=== PATIENT | female | born 1995 | race African-American/Black ===

== ENCOUNTER 2017-01-18 09:41 | Emergency (ER) | payer SELFPAY ==
[~2017-01-18] VITALS: Ht 170.2 cm; Wt 127.2 kg
[2017-01-18] MEDS ORDERED: SODIUM CHLORIDE 0.9% 1,000 ML IV ONE (10:59)
[2017-01-18] MEDS ORDERED: SODIUM CHLORIDE FLUSH 10ML SYR IVF ONE (11:00)
[2017-01-18] MEDS ORDERED: ONDANSETRON 2MG/ML, 2ML IVPush ONE (11:00)
[2017-01-18] MEDS ORDERED: SODIUM CHLORIDE 0.9% 1,000ML IVBOLUS ONE (11:00)
[2017-01-18] MEDS ORDERED: ONDANSETRON 2MG/ML, 2ML ONE (11:00)
[2017-01-18] MEDS ORDERED: HYDROmorphone 1 MG/ML, 1ML IVPush PRN (11:00)
[2017-01-18] MEDS ORDERED: HYDROmorphone 1 MG/ML, 1ML ONE (11:00)
[2017-01-18 11:48] LABS: ASPARTATE AMINO TRANSFERASE 16 U/L (15-37); BLOOD UREA NITROGEN 9 mg/dL (7-18)
[2017-01-18 13:41] LABS: PATH.CAST-FLAG NOT PRESENT; SPERM-FLAG NOT PRESENT; SRC-FLAG NOT PRESENT; XTAL-FLAG NOT PRESENT; YLC-FLAG NOT PRESENT
[2017-01-18 14:40] VITALS: BP 123/75
== END 2017-01-18 14:54 | disposition home or self-care (01) ==
LOC: ED 13:06
DX: K52.9 Noninfective gastroenteritis and colitis, unspecified (principal)
CPT/HCPCS: 36415; 76700; 80053; 81001; 83690; 84703; 85025; 87086; 96361; 96374; 96375; 99285; J1170; J2405; J7030

== ENCOUNTER 2017-01-19 10:23 | Emergency (ER) | payer SELFPAY ==
[~2017-01-19] VITALS: Ht 170.2 cm; Wt 125.0 kg
[2017-01-19] MEDS ORDERED: SODIUM CHLORIDE 0.9% 1,000 ML IV ONE (10:32)
[2017-01-19] MEDS ORDERED: ONDANSETRON 2MG/ML, 2ML ONE (10:42)
[2017-01-19] MEDS ORDERED: HYDROmorphone 1 MG/ML, 1ML ONE (10:42)
[2017-01-19] MEDS ORDERED: ONDANSETRON 2MG/ML, 2ML IVPush ONE (11:00)
[2017-01-19] MEDS ORDERED: SODIUM CHLORIDE FLUSH 10ML SYR IVF ONE (11:00)
[2017-01-19] MEDS ORDERED: HYDROmorphone 1 MG/ML, 1ML IVPush PRN (11:00)
[2017-01-19 11:01] LABS: ASPARTATE AMINO TRANSFERASE 11 U/L (15-37); BLOOD UREA NITROGEN 6 mg/dL (7-18)
[2017-01-19] MEDS ORDERED: OMNIPAQUE 350 MG/ML, 100ML BOTTLE ONE (12:25)
[2017-01-19] MEDS ORDERED: KETOROLAC 30 MG/1 ML ONE ×2 (13:17→13:18)
[2017-01-19 13:23] VITALS: BP 125/53
[2017-01-19] MEDS ORDERED: KETOROLAC 30 MG/1 ML IVPush ONE (13:30)
== END 2017-01-19 13:25 | disposition home or self-care (01) ==
LOC: ED 12:13
DX: S29.011A Strain of muscle and tendon of front wall of thorax, initial encounter (principal); X58.XXXA Exposure to other specified factors, initial encounter; Y93.89 Activity, other specified; Y92.89 Other specified places as the place of occurrence of the external cause; Y99.8 Other external cause status
CPT/HCPCS: 36415; 74177; 80053; 83690; 85025; 96361; 96374; 96375; 99285; J1170; J1885; J2405; J7030; Q9967

== ENCOUNTER 2017-01-20 11:38 | Emergency (ER) | payer SELFPAY ==
[~2017-01-20] VITALS: Ht 170.2 cm; Wt 120.0 kg
[2017-01-20] MEDS ORDERED: ONDANSETRON 2MG/ML, 2ML IVPush ONE (12:30)
[2017-01-20] MEDS ORDERED: SODIUM CHLORIDE 0.9% 1,000ML IVBOLUS ONE (12:30)
[2017-01-20] MEDS ORDERED: LORazepam 2 MG/ML, 1ML IVPush ONE (12:30)
[2017-01-20] MEDS ORDERED: SODIUM CHLORIDE FLUSH 10ML SYR IVF ONE (12:30)
[2017-01-20 12:52] LABS: ASPARTATE AMINO TRANSFERASE 14 U/L (15-37); BLOOD UREA NITROGEN 7 mg/dL (7-18)
[2017-01-20] MEDS ORDERED: MORPHINE SULFATE 4 MG/ML, 1ML ONE ×2 (12:53→15:12)
[2017-01-20] MEDS ORDERED: ONDANSETRON 2MG/ML, 2ML ONE (12:54)
[2017-01-20] MEDS ORDERED: LORazepam 2 MG/ML, 1ML ONE (12:54)
[2017-01-20] MEDS ORDERED: OMNIPAQUE 350 MG/ML, 100ML BOTTLE ONE (13:20)
[2017-01-20] MEDS: MORPHINE SULFATE 4 MG/ML, 1ML IVPush PRN ×2 (13:23→15:18)
[2017-01-20] MEDS ORDERED: CEFTRIAXONE PMX 1GM/50ML 50 ML IV ONE (14:30)
[2017-01-20] MEDS ORDERED: CEFTRIAXONE PMX 1GM/50ML 50 ML ONE (15:12)
[2017-01-20 15:18] VITALS: BP 116/78
== END 2017-01-20 16:16 | disposition home or self-care (01) ==
LOC: ED 13:34
DX: I88.0 Nonspecific mesenteric lymphadenitis (principal); N30.00 Acute cystitis without hematuria; R10.11 Right upper quadrant pain
CPT/HCPCS: 36415; 71275; 80053; 81001; 83690; 84703; 85025; 87086; 93005; 96361; 96365; 96375; 96376; 99285; J0696; J2060; J2405; J7030; Q9967

== ENCOUNTER 2017-01-21 20:06 | Emergency (ER) | payer SELFPAY ==
[~2017-01-21] VITALS: Ht 172.7 cm; Wt 152.1 kg
[2017-01-21 21:26] LABS: PATH.CAST-FLAG NOT PRESENT; SPERM-FLAG NOT PRESENT; SRC-FLAG NOT PRESENT; XTAL-FLAG NOT PRESENT; YLC-FLAG NOT PRESENT
[2017-01-21] MEDS ORDERED: ZIPRASIDONE 20 MG INJ IM ONE ×2 (21:30→21:47)
[2017-01-21] MEDS ORDERED: SODIUM CHLORIDE 0.9% 1,000ML IVBOLUS ONE (21:30)
[2017-01-21] MEDS ORDERED: KETOROLAC 30 MG/1 ML IVPush ONE (21:30)
[2017-01-21 21:47] LABS: ASPARTATE AMINO TRANSFERASE 17 U/L (15-37); BLOOD UREA NITROGEN 7 mg/dL (7-18)
[2017-01-21] MEDS ORDERED: ONDANSETRON 2MG/ML, 2ML ONE ×2 (21:47→22:21)
[2017-01-21] MEDS ORDERED: MORPHINE SULFATE 4 MG/ML, 1ML ONE (21:47)
[2017-01-21] MEDS ORDERED: ONDANSETRON 2MG/ML, 2ML IVPush ONE (22:00)
[2017-01-21] MEDS ORDERED: KETOROLAC 30 MG/1 ML ONE (22:21)
[2017-01-22 00:33] VITALS: BP 138/86
== END 2017-01-22 00:35 | disposition home or self-care (01) ==
LOC: ED 01-22 00:20
DX: R10.11 Right upper quadrant pain (principal)
CPT/HCPCS: 36415; 80053; 81001; 83605; 83690; 85025; 87086; 96361; 96372; 96374; 96375; 99284; J1885; J2405; J3486; J7030

== ENCOUNTER 2017-01-28 12:01 | Emergency (ER) | payer SELFPAY ==
[~2017-01-28] VITALS: Ht 175.3 cm; Wt 149.8 kg
[2017-01-28] MEDS ORDERED: ONDANSETRON ODT 4 MG ONE (12:17)
[2017-01-28] MEDS ORDERED: SODIUM CHLORIDE FLUSH 10ML SYR IVF ONE (12:30)
[2017-01-28] MEDS ORDERED: ONDANSETRON ODT 4 MG PO ONE (12:30)
[2017-01-28] MEDS ORDERED: SODIUM CHLORIDE 0.9% 1,000ML IVBOLUS ONE ×2 (12:30→15:00)
[2017-01-28] MEDS ORDERED: SODIUM CHLORIDE 0.9% 1,000 ML IV ONE (14:43)
[2017-01-28] MEDS ORDERED: ONDANSETRON 2MG/ML, 2ML ONE (14:56)
[2017-01-28] MEDS ORDERED: FAMOTIDINE 20 MG/2 ML ONE (14:56)
[2017-01-28] MEDS ORDERED: MAALOX/HYOSCYAMINE/LIDOCAINE 45 ML BOTTLE ONE (14:56)
[2017-01-28] MEDS ORDERED: MORPHINE SULFATE 4 MG/ML, 1ML ONE (14:56)
[2017-01-28 15:00] LABS: ASPARTATE AMINO TRANSFERASE 11 U/L (15-37); BLOOD UREA NITROGEN 12 mg/dL (7-18)
[2017-01-28] MEDS ORDERED: MORPHINE SULFATE 4 MG/ML, 1ML IVPush PRN (15:00)
[2017-01-28] MEDS ORDERED: MAALOX/HYOSCYAMINE/LIDOCAINE 45 ML BOTTLE PO ONE (15:00)
[2017-01-28] MEDS ORDERED: FAMOTIDINE 20 MG/2 ML IVP ONE (15:00)
[2017-01-28] MEDS ORDERED: ONDANSETRON 2MG/ML, 2ML IVPush ONE (15:00)
[2017-01-28 17:02] VITALS: BP 126/88
== END 2017-01-28 17:03 | disposition home or self-care (01) ==
LOC: ED 16:20
DX: R10.84 Generalized abdominal pain (principal); Z87.440 Personal history of urinary (tract) infections
CPT/HCPCS: 36415; 74022; 80053; 81001; 83605; 83690; 84703; 85025; 93005; 96361; 96374; 96375; 99285; J2405; J7030; Q0162; S0028

== ENCOUNTER 2017-06-17 14:06 | Emergency (ER) | payer SELFPAY ==
[~2017-06-17] VITALS: Ht 177.8 cm; Wt 132.5 kg
[2017-06-17] MEDS ORDERED: OMEP20TA62 PO (14:17)
[2017-06-17] MEDS ORDERED: FAMOTIDINE 20 MG/2 ML ONE (14:23)
[2017-06-17] MEDS ORDERED: ONDANSETRON 2MG/ML, 2ML ONE (14:23)
[2017-06-17] MEDS ORDERED: HYDROmorphone 1 MG/ML, 1ML ONE (14:23)
[2017-06-17] MEDS ORDERED: FAMOTIDINE 20 MG/2 ML IVP ONE (14:30)
[2017-06-17] MEDS ORDERED: ONDANSETRON 2MG/ML, 2ML IVPush ONE (14:30)
[2017-06-17] MEDS ORDERED: SODIUM CHLORIDE 0.9% 1,000ML IVBOLUS ONE (14:30)
[2017-06-17] MEDS ORDERED: HYDROmorphone 1 MG/ML, 1ML IVPush PRN (14:30)
[2017-06-17] MEDS ORDERED: SODIUM CHLORIDE FLUSH 10ML SYR IVF ONE (14:30)
[2017-06-17 14:57] LABS: HEMATOCRIT 38.9 % (34.6-47.8); HEMOGLOBIN 12.9 g/dL (11.7-16.4); WHITE BLOOD COUNT 8.3 x10^3/uL (3.4-10)
[2017-06-17 15:05] LABS: ASPARTATE AMINO TRANSFERASE 10 U/L (15-37); BLOOD UREA NITROGEN 9 mg/dL (7-18)
[2017-06-17 16:44] VITALS: BP 109/55
== END 2017-06-17 16:56 | disposition home or self-care (01) ==
LOC: MERGE 14:06 → ED 16:04
DX: R10.11 Right upper quadrant pain (principal); R11.2 Nausea with vomiting, unspecified
CPT/HCPCS: 36415; 76700; 80053; 81001; 83690; 84703; 85025; 87086; 96374; 96375; 99285; J1170; J2405; J7030; S0028

== ENCOUNTER 2017-06-24 00:59 | Emergency (ER) | payer SELFPAY ==
[~2017-06-24] VITALS: Ht 175.3 cm; Wt 140.0 kg
[~2017-06-24 00:59] MED LIST: OMEP20TA62 PO
[2017-06-24] MEDS ORDERED: ONDANSETRON 2MG/ML, 2ML IVPush ONE (01:30)
[2017-06-24] MEDS ORDERED: SODIUM CHLORIDE 0.9% 1,000ML IVBOLUS ONE (01:30)
[2017-06-24] MEDS ORDERED: KETOROLAC 30 MG/1 ML IVPush ONE (01:30)
[2017-06-24] MEDS ORDERED: LORazepam 2 MG/ML, 1ML IVPush ONE (01:30)
[2017-06-24] MEDS ORDERED: MORPHINE SULFATE 4 MG/ML, 1ML IVPush PRN (01:30)
[2017-06-24] MEDS ORDERED: SODIUM CHLORIDE FLUSH 10ML SYR IVF ONE (01:30)
[2017-06-24] MEDS ORDERED: MORPHINE SULFATE 4 MG/ML, 1ML ONE (01:39)
[2017-06-24] MEDS ORDERED: ONDANSETRON 2MG/ML, 2ML ONE (01:39)
[2017-06-24 01:51] LABS: HEMATOCRIT 41.2 % (34.6-47.8); HEMOGLOBIN 13.8 g/dL (11.7-16.4); WHITE BLOOD COUNT 8.6 x10^3/uL (3.4-10)
[2017-06-24 02:01] LABS: BLOOD UREA NITROGEN 7 mg/dL (7-18)
[2017-06-24 02:07] LABS: ASPARTATE AMINO TRANSFERASE 12 U/L (15-37)
[2017-06-24 03:45] VITALS: BP 116/57
== END 2017-06-24 03:49 | disposition home or self-care (01) ==
LOC: ED 03:20
DX: R10.11 Right upper quadrant pain (principal); E66.01 Morbid (severe) obesity due to excess calories; Z68.41 Body mass index [BMI] 40.0-44.9, adult
CPT/HCPCS: 36415; 74020; 80053; 81001; 83690; 84703; 85025; 87086; 96361; 96374; 96375; 99285; J2405; J7030

== ENCOUNTER 2017-06-27 16:28 | Emergency (ER) | payer SELFPAY ==
[~2017-06-27] VITALS: Ht 177.8 cm; Wt 132.0 kg
[2017-06-27] MEDS ORDERED: SODIUM CHLORIDE 0.9% 1,000 ML IV ONE (16:39)
[2017-06-27] MEDS ORDERED: MAALOX/HYOSCYAMINE/LIDOCAINE 45 ML BTL ONE (16:59)
[2017-06-27] MEDS ORDERED: FAMOTIDINE 20 MG/2 ML ONE (16:59)
[2017-06-27] MEDS ORDERED: MORPHINE SULFATE 4 MG/ML, 1ML ONE (16:59)
[2017-06-27] MEDS ORDERED: ONDANSETRON 2MG/ML, 2ML ONE (16:59)
[2017-06-27] MEDS ORDERED: ONDANSETRON 2MG/ML, 2ML IVPush ONE (17:00)
[2017-06-27] MEDS ORDERED: MAALOX/HYOSCYAMINE/LIDOCAINE 45 ML BTL PO ONE (17:00)
[2017-06-27] MEDS ORDERED: SODIUM CHLORIDE 0.9% 1,000ML IVBOLUS ONE (17:00)
[2017-06-27] MEDS ORDERED: FAMOTIDINE 20 MG/2 ML IVP ONE (17:00)
[2017-06-27] MEDS ORDERED: MORPHINE SULFATE 4 MG/ML, 1ML IVPush PRN (17:00)
[2017-06-27 17:02] LABS: HEMATOCRIT 39.6 % (34.6-47.8); HEMOGLOBIN 13.3 g/dL (11.7-16.4); WHITE BLOOD COUNT 6.5 x10^3/uL (3.4-10)
[2017-06-27 17:13] LABS: ASPARTATE AMINO TRANSFERASE 12 U/L (15-37); BLOOD UREA NITROGEN 6 mg/dL (7-18)
[2017-06-27 17:55] VITALS: BP 139/79
== END 2017-06-27 18:38 | disposition home or self-care (01) ==
LOC: ED 17:13
DX: K29.00 Acute gastritis without bleeding (principal); G89.29 Other chronic pain
CPT/HCPCS: 36415; 80053; 81001; 83690; 85025; 87086; 96361; 96374; 96375; 99284; J2405; J7030; S0028

== ENCOUNTER 2017-07-01 17:10 | Emergency (ER) | payer OTHER ==
[~2017-07-01] VITALS: Ht 175.3 cm; Wt 126.7 kg
[2017-07-01] MEDS ORDERED: SODIUM CHLORIDE 0.9% 1,000ML IVBOLUS ONE (17:30)
[2017-07-01] MEDS ORDERED: SODIUM CHLORIDE FLUSH 10ML SYR IVF ONE (17:30)
[2017-07-01 17:44] LABS: HEMATOCRIT 41.2 % (34.6-47.8); HEMOGLOBIN 13.8 g/dL (11.7-16.4); WHITE BLOOD COUNT 7.1 x10^3/uL (3.4-10)
[2017-07-01 17:58] LABS: ASPARTATE AMINO TRANSFERASE 13 U/L (15-37); BLOOD UREA NITROGEN 5 mg/dL (7-18)
[2017-07-01] MEDS ORDERED: LORazepam 2 MG/ML, 1ML ONE (18:24)
[2017-07-01] MEDS ORDERED: KETOROLAC 30 MG/1 ML IVPush ONE (18:30)
[2017-07-01] MEDS ORDERED: LORazepam 2 MG/ML, 1ML IVPush ONE (18:30)
[2017-07-01] MEDS ORDERED: KETOROLAC 30 MG/1 ML ONE (19:12)
[2017-07-01] MEDS ORDERED: ZIPRASIDONE 20 MG INJ IM ONE ×2 (20:17→20:30)
[2017-07-01 21:37] VITALS: BP 140/70
== END 2017-07-01 22:34 | disposition home or self-care (01) ==
LOC: ED 18:26
DX: G89.29 Other chronic pain (principal); R10.32 Left lower quadrant pain
CPT/HCPCS: 36415; 76830; 80053; 81001; 83690; 84703; 85025; 87086; 96361; 96372; 96374; 96375; 99285; J1885; J2060; J3486; J7030

== ENCOUNTER 2017-07-06 14:11 | Emergency (ER) | payer OTHER ==
[~2017-07-06] VITALS: Ht 175.3 cm; Wt 125.5 kg
[2017-07-06] MEDS ORDERED: DIPHENHYDRAMINE 50 MG/ML, 1ML ONE (14:51)
[2017-07-06] MEDS ORDERED: morphine SULFATE 10 MG/ML, 1ML ONE (14:51)
[2017-07-06] MEDS ORDERED: METOCLOPRAMIDE 5 MG/ML, 2ML ONE (14:51)
[2017-07-06] MEDS ORDERED: SODIUM CHLORIDE 0.9% 1,000ML IVBOLUS ONE (15:00)
[2017-07-06] MEDS ORDERED: SODIUM CHLORIDE FLUSH 10ML SYR IVF ONE (15:00)
[2017-07-06] MEDS ORDERED: METOCLOPRAMIDE 5 MG/ML, 2ML IVPush ONE (15:00)
[2017-07-06] MEDS ORDERED: DIPHENHYDRAMINE 50 MG/ML, 1ML IVPush ONE (15:00)
[2017-07-06] MEDS ORDERED: MORPHINE SULFATE 4 MG/ML, 1ML IVPush PRN (15:00)
[2017-07-06 15:18] LABS: HEMATOCRIT 42.9 % (34.6-47.8); HEMOGLOBIN 14.2 g/dL (11.7-16.4); WHITE BLOOD COUNT 5.3 x10^3/uL (3.4-10)
[2017-07-06 15:27] LABS: BLOOD UREA NITROGEN 4 mg/dL (7-18)
[2017-07-06 15:32] LABS: ASPARTATE AMINO TRANSFERASE 18 U/L (15-37)
[2017-07-06 16:58] VITALS: BP 107/47
== END 2017-07-06 19:00 | disposition home or self-care (01) ==
LOC: ED 15:19
DX: R10.84 Generalized abdominal pain (principal); R11.10 Vomiting, unspecified; R19.7 Diarrhea, unspecified; I88.0 Nonspecific mesenteric lymphadenitis
CPT/HCPCS: 36415; 74176; 80053; 81001; 83690; 84703; 85025; 96361; 96374; 96375; 99285; J1200; J2765; J7030

== ENCOUNTER 2017-07-07 13:43 | Emergency (ER) | payer OTHER ==
[~2017-07-07] VITALS: Ht 175.3 cm; Wt 125.0 kg
[2017-07-07] MEDS ORDERED: DIPHENHYDRAMINE 50 MG/ML, 1ML IVPush ONE (14:00)
[2017-07-07] MEDS ORDERED: FAMOTIDINE 20 MG/2 ML IVP ONE (14:00)
[2017-07-07] MEDS ORDERED: MORPHINE SULFATE 4 MG/ML, 1ML IVPush PRN (14:00)
[2017-07-07] MEDS ORDERED: METOCLOPRAMIDE 5 MG/ML, 2ML IVPush ONE (14:00)
[2017-07-07] MEDS ORDERED: SODIUM CHLORIDE 0.9% 1,000ML IVBOLUS ONE (14:00)
[2017-07-07] MEDS ORDERED: SODIUM CHLORIDE FLUSH 10ML SYR IVF ONE (14:00)
[2017-07-07] MEDS ORDERED: morphine SULFATE 10 MG/ML, 1ML ONE (14:11)
[2017-07-07] MEDS ORDERED: FAMOTIDINE 20 MG/2 ML ONE (14:12)
[2017-07-07] MEDS ORDERED: METOCLOPRAMIDE 5 MG/ML, 2ML ONE (14:12)
[2017-07-07] MEDS ORDERED: DIPHENHYDRAMINE 50 MG/ML, 1ML ONE (14:12)
[2017-07-07] MEDS ORDERED: HALOPERIDOL 5 MG/ML IM PRN (15:00)
[2017-07-07 15:36] VITALS: BP 111/57
[2017-07-07] MEDS ORDERED: HALOPERIDOL 5 MG/ML ONE (15:44)
== END 2017-07-07 16:59 | disposition home or self-care (01) ==
LOC: ED 14:31
DX: R11.2 Nausea with vomiting, unspecified (principal); R10.84 Generalized abdominal pain
CPT/HCPCS: 96361; 96372; 96374; 96375; 99284; J1200; J1630; J2765; J7030; S0028

== ENCOUNTER 2017-07-10 13:30 | Emergency (ER) | payer SELFPAY ==
[~2017-07-10] VITALS: Ht 175.3 cm; Wt 128.2 kg
[2017-07-10] MEDS ORDERED: SODIUM CHLORIDE 0.9% 1,000 ML IV ONE (14:24)
[2017-07-10] MEDS ORDERED: ONDANSETRON 2MG/ML, 2ML IVPush ONE (14:30)
[2017-07-10] MEDS ORDERED: SODIUM CHLORIDE FLUSH 10ML SYR IVF ONE (14:30)
[2017-07-10] MEDS ORDERED: SODIUM CHLORIDE 0.9% 1,000ML IVBOLUS ONE (14:30)
[2017-07-10] MEDS ORDERED: HYDROmorphone 1 MG/ML, 1ML ONE ×2 (14:31→16:23)
[2017-07-10] MEDS ORDERED: ONDANSETRON 2MG/ML, 2ML ONE (14:32)
[2017-07-10 14:44] LABS: HEMATOCRIT 39.7 % (34.6-47.8)
[2017-07-10] MEDS: HYDROmorphone 1 MG/ML, 1ML IVPush PRN ×2 (14:44→16:25)
[2017-07-10 14:55] LABS: ASPARTATE AMINO TRANSFERASE 12 U/L (15-37); BLOOD UREA NITROGEN 5 mg/dL (7-18)
[2017-07-10 17:22] VITALS: BP 108/80
== END 2017-07-10 17:25 | disposition home or self-care (01) ==
LOC: ED 14:42
DX: M54.5 Low back pain (principal)
CPT/HCPCS: 36415; 76700; 80053; 81003; 83690; 84703; 85025; 96361; 96374; 96375; 96376; 99285; J1170; J2405; J7030

== ENCOUNTER 2019-08-10 08:59 | Emergency (ER) | payer MEDICAID ==
[~2019-08-10] VITALS: Ht 175.3 cm; Wt 92.0 kg
--- NOTE | 2019-08-10 09:15 | NUR ---
PT HERE WITH C/O NAUSEA, VOMITTING, R/L UQ ABDOMINAL PAIN THAT RADIATES TO BACK. PT STATES STARTED THIS AM AT 0500. PT STATES SHE HAS VOMITTED 5 TIMES SINCE SHE WOKE UP. PT SITTING ON EDGE OF BED, RESIDENT MD AT BEDSIDE FOR EXAM. PT DENIES MEDICAL HX BUT STATES SHE TOOK A NORCO LAST NIGHT BEFORE BED WHICH SHE HAS A PRESCRIPTION FOR FROM [facility] ON 08/09. PT AAO X 4, ROOM AIR, CALL LIGHT WITHIN REACH, PT TO CHANGE INTO GOWN AFTER MD ASSESSMENT.
[2019-08-10 09:54] LABS: BASOPHILS % (AUTO) 0 % (0-1); EOSINOPHILS # (AUTO) 0.14 x10^3/uL (0-0.4); EOSINOPHILS % (AUTO) 2 % (1-7); LYMPHOCYTES # (AUTO) 1.36 x10^3/uL (1-3.4); LYMPHOCYTES % (AUTO) 17 % (22-44); MD NO; MEAN CORPUSCULAR HEMOGLOBIN 27.2 pg (27.0-34.8); MEAN CORPUSCULAR HGB CONC 31.3 g/dL (32.4-35.8); MEAN CORPUSCULAR VOLUME 86.8 fL (80-100); MONOCYTES # (AUTO) 0.28 x10^3/uL (0.2-0.8); MONOCYTES % (AUTO) 4 % (2-9); NEUTROPHILS # (AUTO) 6.16 x10^3/uL (1.8-6.8); NEUTROPHILS % (AUTO) 78 % (42-75); PLATELET COUNT 275 x10^3/uL (130-400); RED CELL DISTRIBUTION WIDTH 16.6 % (9.6-15.2)
--- NOTE | 2019-08-10 09:56 | NUR ---
TECH AT BEDSIDE FOR EKG.
[2019-08-10 10:04] LABS: ALANINE AMINOTRANSFERASE 18 U/L (12-78); ALBUMIN 4.4 g/dL (3.4-5.0); ANION GAP 5 mmol/L (5-15); CALCIUM 9.2 mg/dL (8.5-10.1); CHLORIDE 108 mmol/L (98-107); CREATININE 0.94 mg/dL (0.55-1.02)
[2019-08-10 10:06] LABS: ALKALINE PHOSPHATASE 58 U/L (45-117); BILIRUBIN,TOTAL 0.4 mg/dL (0.2-1.0); TOTAL PROTEIN 7.8 g/dL (6.4-8.2)
--- NOTE | 2019-08-10 10:07 | NUR ---
PT AMBULATORY TO RESTROOM WITH STEADY GAIT FOR URINE SAMPLE.
[2019-08-10] MEDS ORDERED: HALOPERIDOL 5 MG/ML ONE (10:16)
[2019-08-10] MEDS ORDERED: METOCLOPRAMIDE 5 MG/ML, 2ML ONE (10:16)
--- NOTE | 2019-08-10 10:22 | NUR ---
PT MEDICATED PER NOV, UA SENT TO LAB.
[2019-08-10 10:27] VITALS: BP 125/62
[2019-08-10] MEDS ORDERED: METOCLOPRAMIDE 5 MG/ML, 2ML IM ONE (10:30)
[2019-08-10] MEDS ORDERED: HALOPERIDOL 5 MG/ML IM ONE (10:30)
--- NOTE | 2019-08-10 10:58 | NUR ---
PT TO RADIOLOGY.
[2019-08-10 11:15] LABS: HCG UR SG 1.029 (1.003-1.030)
[2019-08-10 11:16] LABS: CULTURE INDICATED? YES; MICROSCOPIC INDICATED
--- NOTE | 2019-08-10 11:29 | NUR ---
THIS RN AND RESIDENT ENTERED ROOM FOR REASSESSMENT OF PT, PT FOUND NOT TO BE IN ROOM. THIS RN CALLED RADIOLOGY, PT NOT IN RADIOLOGY. THIS RN WALKED AROUND ER AND CHECKED ALL PT BATHROOMS, PT STILL UNABLE TO BE LOCATED. RESIDENT TO UPDATE ATTENDING MD.
--- NOTE | 2019-08-10 11:39 | NUR ---
PT MD DINORA AND MEAT CLERK AWARE.
== END 2019-08-10 11:41 | disposition left against medical advice (07) ==
LOC: ED 10:35
DX: R10.84 Generalized abdominal pain (principal); F12.188 Cannabis abuse with other cannabis-induced disorder
CPT/HCPCS: 36415; 74022; 80053; 81001; 81025; 83690; 85025; 87086; 93005; 96372; 99284; J1630; J2765

== ENCOUNTER 2019-08-19 09:11 | Emergency (ER) | payer MEDICAID ==
[~2019-08-19] VITALS: Ht 175.3 cm; Wt 97.7 kg
[2019-08-19] MEDS ORDERED: SODIUM CHLORIDE 0.9% 1,000 ML IV ONE (09:25)
[2019-08-19] MEDS ORDERED: SODIUM CHLORIDE FLUSH 10ML SYR IVF ONE (09:30)
[2019-08-19] MEDS ORDERED: SODIUM CHLORIDE 0.9% 1,000ML IVBOLUS ONE (09:30)
[2019-08-19] MEDS ORDERED: PROMETHAZINE 25 MG/ML, 1ML IM ONE (09:30)
[2019-08-19] MEDS ORDERED: PROMETHAZINE 25 MG/ML, 1ML ONE (09:34)
[2019-08-19] MEDS ORDERED: KETOROLAC 30 MG/1 ML ONE (09:42)
--- NOTE | 2019-08-19 09:43 | NUR ---
BREAK RN: PT CRYING, STATES SHE NEEDS PAIN MEDICATION HER PAIN LEVEL IS 10/[address] VAZQUEZ, ORDERS RECEIVED FOR TORDOL.
[2019-08-19] MEDS ORDERED: KETOROLAC 30 MG/1 ML IVPush ONE (10:00)
[2019-08-19 10:01] LABS: ALANINE AMINOTRANSFERASE 20 U/L (12-78); ANION GAP 5 mmol/L (5-15); CALCIUM 8.8 mg/dL (8.5-10.1); CHLORIDE 107 mmol/L (98-107); MEAN CORPUSCULAR HEMOGLOBIN 27.5 pg (27.0-34.8); MEAN CORPUSCULAR HGB CONC 31.8 g/dL (32.4-35.8); MEAN CORPUSCULAR VOLUME 86.4 fL (80-100); MEAN PLATELET VOLUME 9.1 fL (7.4-10.4); PLATELET COUNT 240 x10^3/uL (130-400); RED CELL DISTRIBUTION WIDTH 16.8 % (9.6-15.2)
--- NOTE | 2019-08-19 10:03 | NUR ---
Pt medicated per MAR, pt in bed, NAD, family at bedside, pt informed that UA required, pt states she cannot urinate at this time. Awaiting labs & dispo. WCTM.
[2019-08-19 10:06] LABS: ALKALINE PHOSPHATASE 57 U/L (45-117); BILIRUBIN,TOTAL 0.3 mg/dL (0.2-1.0); TOTAL PROTEIN 7.6 g/dL (6.4-8.2)
--- NOTE | 2019-08-19 10:39 | NUR ---
Attempted to straight cath pt, unsuccessful d/t pt's anatomy. Pt amulatory to restroom to provide UA, notified that pt is requesting more pain & nausea medications.
[2019-08-19] MEDS ORDERED: ONDANSETRON 2MG/ML, 2ML ONE ×2 (10:46→14:01)
[2019-08-19] MEDS ORDERED: HYDROmorphone 2 MG/ML, 1ML ONE (10:46)
[2019-08-19 10:51] LABS: BASOPHILS # (AUTO) 0.01 x10^3/uL (0-0.1); BASOPHILS % (AUTO) 0 % (0-1); EOSINOPHILS # (AUTO) 0.15 x10^3/uL (0-0.4); EOSINOPHILS % (AUTO) 3 % (1-7); LYMPHOCYTES # (AUTO) 0.84 x10^3/uL (1-3.4); LYMPHOCYTES % (AUTO) 18 % (22-44); MD SCAN; MONOCYTES # (AUTO) 0.23 x10^3/uL (0.2-0.8); MONOCYTES % (AUTO) 5 % (2-9); NEUTROPHILS # (AUTO) 3.55 x10^3/uL (1.8-6.8); NEUTROPHILS % (AUTO) 74 % (42-75)
--- NOTE | 2019-08-19 10:56 | NUR ---
Pt unable to provide UA at this time, notified
[2019-08-19] MEDS ORDERED: HYDROmorphone 2 MG/ML, 1ML IVPush PRN (11:00)
[2019-08-19] MEDS ORDERED: ONDANSETRON 2MG/ML, 2ML IVPush ONE ×2 (11:00→14:00)
--- NOTE | 2019-08-19 12:00 | NUR ---
Pt given ice chips for PO challenge, pt reports she is still unable to urinate. MD Murillo state dispo is not contengent on UA at this time
--- NOTE | 2019-08-19 12:56 | NUR ---
Pt up for recheck
--- NOTE | 2019-08-19 13:18 | NUR ---
RECEIVED REPORT FROM XIN. PT LAYING ON GURNEY WITH EYES CLOSED, RESPONDS APPROP TO STAFF, NAD, NO NEEDS AT THIS TIME, CALL LIGHT WITHIN REACH.
[2019-08-19 14:07] VITALS: BP 117/48
--- NOTE | 2019-08-19 14:08 | NUR ---
PT. REMAINS MONITORED WITH STABLE VITALS. PT. WAS MEDICATED FOR NAUSEA ORDERED. WILL REASSESS FOR DISCHARGE IN 15 MINUTES. NS BOLUS IS INFUSING. SIDERAILS REMAIN UP X 2 WITH THE CALL LIGHT IN REACH. BREAK RN.
--- NOTE | 2019-08-19 14:24 | NUR ---
PT.'S IV WAS DCD', CATH TIP INTACT. PRESSURE HELD WITH HEMOSTASIS ACHIEVED. PT. WAS GIVEN DISCHARGE INSTRUCTIONS AND A SCRIPT. UNDERSTANDING VERBALIZED ALONG WITH WILLINGNESS TO COMPLY. PT. WAS AMBULATORY TO THE DISCHARGE DESK. PT. STATES RELIEF FROM MEDICATIONS AND IV FLUIDS GIVEN.
== END 2019-08-19 14:41 | disposition home or self-care (01) ==
LOC: ED 11:22
DX: R11.2 Nausea with vomiting, unspecified (principal); E86.0 Dehydration; R10.84 Generalized abdominal pain
CPT/HCPCS: 36415; 76700; 80053; 83690; 84703; 85025; 96361; 96372; 96374; 96375; 96376; 99284; J1170; J1885; J2405; J2550; J7030

== ENCOUNTER 2019-09-05 07:37 | Inpatient (IN) | payer MEDICAID ==
[~2019-09-05] VITALS: Ht 175.3 cm; Wt 95.6 kg
[2019-09-05] MEDS ORDERED: SODIUM CHLORIDE FLUSH 10ML SYR IVF ONE (08:00)
[2019-09-05] MEDS ORDERED: ONDANSETRON 2MG/ML, 2ML IVPush ONE (08:00)
--- NOTE | 2019-09-05 08:15 | NUR ---
PT HERE FOR ABDOMINAL PAIN THAT STARTED AT 0200 THIS MORNING. PT STATES SHE HAS HAD NOTHING TO EAT SINCE BREAKFAST YESTERDAY AND HAS BEEN NAUSEAS SINCE THEN. PT HAVING DIFFICULTY SITTING STILL ON GURNEY. SLIGHT DIAPHORESIS NOTED ON FORHEAD. HAS SMALL AMOUNT OF EMESIS IN EMESIS BAG. PIV ATTEMPTED X2 BY THIS RN. ANOTHER RN WILL ATTEMPT PIV. PT CURRENTLY AMBULATORY WITH STEADY GAIT TO BATHROOM TO PROVIDE URINE SAMPLE.
--- NOTE | 2019-09-05 08:24 | NUR ---
PT UNABLE TO PROVIDE UA. NOW RESTING ON GURNEY. CONTINUES TO DRIVE HEAVE. PIV TO BE ATTEMPTED.
[2019-09-05] MEDS ORDERED: HYDROmorphone 1 MG/ML, 1ML INJ ONE ×3 (08:28→09:10)
[2019-09-05] MEDS ORDERED: ONDANSETRON 2MG/ML, 2ML ONE (08:29)
[2019-09-05] MEDS: HYDROmorphone 2 MG/ML, 1ML IVPush PRN ×2 (08:30→09:11)
--- NOTE | 2019-09-05 08:34 | NUR ---
PIV STARTED. MEDICATED PER EMAR. RESTING ON GURNEY. VSS. NADN.
--- NOTE | 2019-09-05 08:49 | NUR ---
PT AWARE OF NEED FOR UA. CUP PROVIDED. CALL LIGHT IN REACH.
[2019-09-05 08:51] LABS: BASOPHILS % (AUTO) 0 % (0-1); EOSINOPHILS # (AUTO) 0.11 x10^3/uL (0-0.4); EOSINOPHILS % (AUTO) 2 % (1-7); LYMPHOCYTES # (AUTO) 0.89 x10^3/uL (1-3.4); LYMPHOCYTES % (AUTO) 15 % (22-44); MD NO; MEAN CORPUSCULAR HEMOGLOBIN 27.6 pg (27.0-34.8); MEAN CORPUSCULAR HGB CONC 31.6 g/dL (32.4-35.8); MEAN CORPUSCULAR VOLUME 87.1 fL (80-100); MEAN PLATELET VOLUME 10.1 fL (7.4-10.4); MONOCYTES % (AUTO) 3 % (2-9); NEUTROPHILS # (AUTO) 4.81 x10^3/uL (1.8-6.8); NEUTROPHILS % (AUTO) 80 % (42-75); PLATELET COUNT 230 x10^3/uL (130-400); RED CELL DISTRIBUTION WIDTH 16.5 % (9.6-15.2)
[2019-09-05 09:00] LABS: ALANINE AMINOTRANSFERASE 20 U/L (12-78); ALBUMIN 4.3 g/dL (3.4-5.0); ANION GAP 9 mmol/L (5-15); CALCIUM 9.3 mg/dL (8.5-10.1); CHLORIDE 111 mmol/L (98-107); CREATININE 0.97 mg/dL (0.55-1.02)
[2019-09-05 09:05] LABS: ALKALINE PHOSPHATASE 56 U/L (45-117); BILIRUBIN,TOTAL 0.4 mg/dL (0.2-1.0); TOTAL PROTEIN 8.1 g/dL (6.4-8.2)
--- NOTE | 2019-09-05 09:12 | NUR ---
PT MEDICATED PER EMAR. RESTING ON GURNEY. PAIN 06/26
--- NOTE | 2019-09-05 09:28 | NUR ---
PER MD WATERMAN TO STRAIGHT CATH PT. PT STRAIGHT CATH'D, TOLERATED WELL. RESTING ON NIKKI. FORTINO.
[2019-09-05 09:36] LABS: MICROSCOPIC INDICATED
[2019-09-05 09:43] LABS: CULTURE INDICATED? NO
[2019-09-05] MEDS ORDERED: HALOPERIDOL 5 MG/ML ONE (10:12)
--- NOTE | 2019-09-05 10:19 | NUR ---
PT CONNECTED TO FACILITIES SUPERVISOR AND THEN MEDICATED PER EMAR. RESTING ON GURPEDRO. FORTINO. VSS.
[2019-09-05] MEDS ORDERED: HALOPERIDOL 5 MG/ML IVPush ONE (10:30)
--- NOTE | 2019-09-05 11:41 | NUR ---
TASK RN: PT PROVIDED W/ PO FLUIDS FOR PO CHALLENGE. PT RESTING ON [facility]. MONITORS IN PLACE. VSS.
--- NOTE | 2019-09-05 13:07 | NUR ---
PT RESTING ON GURNEY, NOT FEELING BETTER AND ONLY TOLERATING DIET. PER MD PT WILL BE ADMITTED TO HOSPITAL. PT AWARE OF POC. RESTING ON GURNEY. VSS.
[2019-09-05] MEDS: SODIUM CHLORIDE 0.9% 1,000 ML IV SCH ×2 (13:16→23:59)
--- NOTE | 2019-09-05 13:18 | NUR ---
PT MEDICATED PER EMAR. RESTING ON GURNEY. NADN. VSS.
--- NOTE | 2019-09-05 13:56 | NUR ---
PT IN CT NOW.
--- NOTE | 2019-09-05 14:04 | NUR ---
PT BACK FROM CT. RESTING ON [employer]. CONNECTED TO MONITOR. NADN. YANEZ.
--- NOTE | 2019-09-05 14:22 | NUR ---
REPORT GIVEN TO VIANEY WINTERS RN.
[2019-09-05] MEDS ORDERED: OMNIPAQUE 350 MG/ML, 100ML BOTTLE ONE (14:48)
[2019-09-05] MEDS: morphine SULFATE 10 MG/ML, 1ML IVPush PRN ×3 (16:34→22:40)
[2019-09-05] MEDS: ONDANSETRON 2MG/ML, 2ML IVPush PRN (19:46)
[2019-09-05 19:57] VITALS: BP 122/70
[2019-09-06 01:21] VITALS: BP 107/62
[2019-09-06] MEDS: morphine SULFATE 10 MG/ML, 1ML IVPush PRN ×7 (01:53→20:46)
[2019-09-06 05:45] LABS: ANION GAP 6 mmol/L (5-15); CALCIUM 8.5 mg/dL (8.5-10.1); CHLORIDE 113 mmol/L (98-107); CREATININE 0.71 mg/dL (0.55-1.02)
[2019-09-06 05:59] LABS: MEAN CORPUSCULAR HEMOGLOBIN 28.2 pg (27.0-34.8); MEAN CORPUSCULAR HGB CONC 32.2 g/dL (32.4-35.8); MEAN CORPUSCULAR VOLUME 87.7 fL (80-100); MEAN PLATELET VOLUME 9.7 fL (7.4-10.4); PLATELET COUNT 192 x10^3/uL (130-400); RED BLOOD COUNT 3.55 x10^6/uL (3.82-5.3); RED CELL DISTRIBUTION WIDTH 16.9 % (9.6-15.2)
[2019-09-06 07:02] VITALS: BP 117/73
[2019-09-06 07:03] LABS: BASOPHILS % (AUTO) 0 % (0-1); EOSINOPHILS % (AUTO) 2 % (1-7); LYMPHOCYTES % (AUTO) 23 % (22-44); MD SCAN; MONOCYTES # (AUTO) 0.36 x10^3/uL (0.2-0.8); MONOCYTES % (AUTO) 8 % (2-9); NEUTROPHILS % (AUTO) 67 % (42-75)
[2019-09-06] MEDS ORDERED: PANTOPRAZOLE 40 MG IV IVPush SCH (07:30)
[2019-09-06] MEDS: ONDANSETRON 2MG/ML, 2ML IVPush PRN ×2 (10:43→16:53)
[2019-09-06] MEDS: SODIUM CHLORIDE 0.9% 1,000 ML IV SCH ×2 (10:43→20:32)
[2019-09-06 15:39] VITALS: BP 112/67
[2019-09-06 18:49] VITALS: BP 130/75
[2019-09-07] MEDS: morphine SULFATE 10 MG/ML, 1ML IVPush PRN ×2 (00:18→05:19)
[2019-09-07] MEDS: ONDANSETRON 2MG/ML, 2ML IVPush PRN ×2 (00:20→13:56)
[2019-09-07 00:25] VITALS: BP 127/77
[2019-09-07] MEDS: SODIUM CHLORIDE 0.9% 1,000 ML IV SCH ×2 (03:03→17:12)
[2019-09-07] MEDS: METOCLOPRAMIDE 5 MG/ML, 2ML IVPush PRN ×2 (05:21→21:28)
[2019-09-07 08:26] VITALS: BP 114/71
[2019-09-07] MEDS ORDERED: ACETAMINOPHEN 325 MG TABLET PO PRN (09:00)
[2019-09-07 09:57] LABS: MEAN CORPUSCULAR HGB CONC 32.1 g/dL (32.4-35.8); MEAN PLATELET VOLUME 9.9 fL (7.4-10.4); PLATELET COUNT 165 x10^3/uL (130-400); RED BLOOD COUNT 3.49 x10^6/uL (3.82-5.3); RED CELL DISTRIBUTION WIDTH 15.8 % (9.6-15.2)
[2019-09-07 10:23] LABS: BASOPHILS # (AUTO) 0.02 x10^3/uL (0-0.1); BASOPHILS % (AUTO) 1 % (0-1); EOSINOPHILS # (AUTO) 0.09 x10^3/uL (0-0.4); EOSINOPHILS % (AUTO) 3 % (1-7); LYMPHOCYTES # (AUTO) 0.85 x10^3/uL (1-3.4); LYMPHOCYTES % (AUTO) 29 % (22-44); MD SCAN; MONOCYTES % (AUTO) 7 % (2-9); NEUTROPHILS # (AUTO) 1.73 x10^3/uL (1.8-6.8); NEUTROPHILS % (AUTO) 60 % (42-75)
[2019-09-07] MEDS ORDERED: KETOROLAC 30 MG/1 ML IM PRN (13:30)
[2019-09-07] MEDS: LACTOBACILLUS CHEW TABLET PO SCH ×3 (13:55→21:28)
[2019-09-07] MEDS: KETOROLAC 30 MG/1 ML IVPush PRN ×2 (13:56→21:32)
[2019-09-07 15:25] VITALS: BP 123/73
[2019-09-07] MEDS ORDERED: HYDROmorphone 2MG TABLET ONE (17:08)
[2019-09-07] MEDS: HYDROmorphone 2MG TABLET PO PRN (17:10)
[2019-09-07 18:38] VITALS: BP 127/73
[2019-09-08] MEDS: HYDROmorphone 2MG TABLET PO PRN ×2 (01:04→09:12)
[2019-09-08] MEDS: ONDANSETRON 2MG/ML, 2ML IVPush PRN ×2 (01:04→09:21)
[2019-09-08 01:10] VITALS: BP 117/72
[2019-09-08 05:44] LABS: % IRON SATURATION 8 % (20-55); IRON LEVEL 27 mcg/dL (50-170); TOTAL IRON BINDING CAPACITY 351 mcg/dL (250-450)
[2019-09-08] MEDS: METOCLOPRAMIDE 5 MG/ML, 2ML IVPush PRN (06:18)
[2019-09-08] MEDS: KETOROLAC 30 MG/1 ML IVPush PRN (06:22)
[2019-09-08 07:04] VITALS: BP 133/76
[2019-09-08] MEDS ORDERED: FERROUS SULFATE 325 MG TABLET PO SCH (07:30)
[2019-09-08] MEDS: LACTOBACILLUS CHEW TABLET PO SCH (09:12)
[2019-09-08] MEDS: SODIUM CHLORIDE 0.9% 1,000 ML IV SCH (09:14)
== END 2019-09-08 11:20 | disposition left against medical advice (07) | DRG 918 ==
LOC: ED 09:24 → EDIP 13:06 → 3N 14:36 → OBSVTOIN 09-06 09:26
PROVIDERS: ADMIT Internal Medicine Infectious Disease; ATTEND Internal Medicine Infectious Disease
DX: T40.7X1A Poisoning by cannabis (derivatives), accidental (unintentional), initial encounter (principal); D64.9 Anemia, unspecified; Y92.89 Other specified places as the place of occurrence of the external cause; F12.20 Cannabis dependence, uncomplicated; E86.0 Dehydration; E66.9 Obesity, unspecified; G89.29 Other chronic pain; L29.9 Pruritus, unspecified; Z68.31 Body mass index [BMI] 31.0-31.9, adult; R11.2 Nausea with vomiting, unspecified
CPT/HCPCS: 36415; 74177; 80048; 80053; 81001; 83540; 83550; 83690; 83735; 84100; 84703; 85025; 96374; 96375; 96376; G0378; J1170; J1885; J2405; Q9967; C9113; J1630; J2270; J2765; J7030

== ENCOUNTER 2019-11-03 17:08 | Emergency (ER) | payer MEDICAID ==
[~2019-11-03] VITALS: Ht 175.3 cm; Wt 90.2 kg
[2019-11-03 17:29] VITALS: BP 130/40
--- NOTE | 2019-11-03 18:49 | NUR ---
Received report and assumed patient care. Awaiting ultrasound imaging and results.
== END 2019-11-03 20:01 | disposition home or self-care (01) ==
LOC: ED 18:10
DX: O26.891 Other specified pregnancy related conditions, first trimester (principal); R11.0 Nausea; Z3A.01 Less than 8 weeks gestation of pregnancy
CPT/HCPCS: 36415; 76801; 84702; 84703; 99284

== ENCOUNTER 2019-11-14 09:42 | Emergency (ER) | payer MEDICAID ==
[~2019-11-14] VITALS: Ht 175.3 cm; Wt 88.1 kg
--- NOTE | 2019-11-14 10:12 | NUR ---
THIS IS A 24 YO FEMALE WHO PRESENTS TO THE ER C/O BILAT FLANK AND BILAT LOWER ABD QUAD PAIN SINCE 0200 THIS AM ACCOMPANIED BY 1 EPISODE OF N/V/D. PT APPROX 7 WEEKS . PT REPORTS IRREGULAR MENSES AND LAST ONE WAS "LIKE THE END OF SEPTEMBER?". PT ROCKING BACK AND FORTH ON SIDE OF BED. AT BEDSIDE. QI DA SILVA AT BEDSIDE FOR EVAL. AWAITING ORDERS.
[2019-11-14] MEDS ORDERED: MORPHINE SULFATE 4 MG/ML, 1ML ONE ×2 (10:24→15:10)
[2019-11-14] MEDS ORDERED: ONDANSETRON 2MG/ML, 2ML ONE ×2 (10:24→10:39)
[2019-11-14] MEDS ORDERED: ONDANSETRON 2MG/ML, 2ML IVPush ONE ×2 (10:30→11:00)
[2019-11-14] MEDS ORDERED: SODIUM CHLORIDE FLUSH 10ML SYR IVF ONE (10:30)
[2019-11-14] MEDS: MORPHINE SULFATE 4 MG/ML, 1ML IVPush PRN ×2 (10:36→15:16)
--- NOTE | 2019-11-14 10:46 | NUR ---
PT AMBULATED TO AND FROM RESTROOM W/O DIFFICULTY. ATTEMPTED TO PROVIDE URINE SAMPLE BUT WAS UNSUCCESSFUL. PT MEDICATED ORDERED FOR 10/10 BILAT FLANK AND BILAT LOWER ABD PAIN ORDERED. PT C/O INCREASED NASUEA AND HAS DIAPHORESIS. DISCUSSED WITH QI DA SILVA AND PT REMEDICATED FOR NAUSEA ORDERED. PT ROCKING ON GURNEY. QI DA SILVA NOTIFIED. AWAITING ORDERS.
[2019-11-14 10:52] LABS: BASOPHILS # (AUTO) 0.03 x10^3/uL (0-0.1); BASOPHILS % (AUTO) 1 % (0-1); EOSINOPHILS # (AUTO) 0.01 x10^3/uL (0-0.4); EOSINOPHILS % (AUTO) 0 % (1-7); LYMPHOCYTES # (AUTO) 0.87 x10^3/uL (1-3.4); LYMPHOCYTES % (AUTO) 12 % (22-44); MD NO; MEAN CORPUSCULAR HEMOGLOBIN 28.4 pg (27.0-34.8); MEAN CORPUSCULAR HGB CONC 32.6 g/dL (32.4-35.8); MEAN CORPUSCULAR VOLUME 86.9 fL (80-100); MEAN PLATELET VOLUME 9.8 fL (7.4-10.4); MONOCYTES % (AUTO) 4 % (2-9); NEUTROPHILS % (AUTO) 83 % (42-75); PLATELET COUNT 233 x10^3/uL (130-400); RED BLOOD COUNT 4.04 x10^6/uL (3.82-5.3); RED CELL DISTRIBUTION WIDTH 18.3 % (9.6-15.2)
[2019-11-14 11:02] LABS: ALBUMIN 3.9 g/dL (3.4-5.0); ANION GAP 6 mmol/L (5-15); CALCIUM 9.1 mg/dL (8.5-10.1); CHLORIDE 108 mmol/L (98-107); CREATININE 0.81 mg/dL (0.55-1.02)
--- NOTE | 2019-11-14 11:25 | NUR ---
PT C/O NO IMPROVEMENT TO PAIN AND NAUSEA AND HAS REFUSED US X 2. DISCUSSED WITH QI DA SILVA WHO WILL RE-EVALUATE PT. AWAITING ORDERS. REPORT TO BEHZAD KEMP WHO ASSUMED CARE OF PT.
--- NOTE | 2019-11-14 11:30 | NUR ---
REPORT FROM TEMI WEN, ASSUMING CARE AT THIS TIME.
[2019-11-14] MEDS ORDERED: PHENAZOPYRIDINE 200 MG TABLET PO ONE (12:30)
[2019-11-14 12:33] LABS: MICROSCOPIC INDICATED
[2019-11-14] MEDS ORDERED: PHENAZOPYRIDINE 200 MG TABLET ONE (12:39)
--- NOTE | 2019-11-14 12:44 | NUR ---
PT C/O SEVERE LOWER ABDOMINAL CRAMPING. UA HAS BEEN SENT AND RESULTS RECEIVED. NEW ORDER FOR PYRIDIUM PO. RN ADMINISTERS PYRIDIUM PO TO PATIENT. EDUCATION GIVEN TO PATIENT ON RATIONALE FOR MEDICATION, AND SIDE EFFECT OF URINE TURNING ORANGE OR ANY VARIANT FROM ORANGE TO YELLOW. PT VERBALIZES UNDERSTANDING OF INSTRUCTIONS ON MEDICATION AND SIDE EFFECT. CONTINUE TO MONITOR PATIENT. REMAINS AT BEDSIDE.
[2019-11-14 12:57] LABS: CULTURE INDICATED? YES
--- NOTE | 2019-11-14 13:05 | NUR ---
PT TO MRI VIA WHEELCHAIR. REMAINS IN ROOM.
--- NOTE | 2019-11-14 13:31 | NUR ---
PT RETURNED FROM MRI WITH SEVERE DRY HEAVES, SHAKING AND C/O SEVERE ABDOMINAL PAIN. NO VOMIT. NOTE PLACED TO MD ABOUT PATIENT CONDITION.
[2019-11-14] MEDS ORDERED: ONDANSETRON ODT 4 MG PO ONE (14:00)
--- NOTE | 2019-11-14 14:05 | NUR ---
MRI CALLED TO INFORM RN THAT PATIENT REFUSED THE PELVIC PORTION OF THE MRI AFTER THE ABDOMEN WAS FINISHED. MRI CONTACTED DR. LEA AND ATTEMPTED TEST TWICE. SPOKE WITH PATIENT WHO STATES "THAT IS WHEN I GOT REAL DIZZY AND HOT AND STARTED THROWING UP, SO THEY BROUGHT ME BACK" PT IS WILLING TO HAVE TEST DONE AFTER SHE RECEIVES THE ODT ZOFRAN ORDERED BY .
[2019-11-14] MEDS ORDERED: ONDANSETRON ODT 4 MG ONE (14:10)
--- NOTE | 2019-11-14 15:00 | NUR ---
PT RESTING IN ROOM WITH . LYING ON BED, LOOKING MUCH MORE COMFORTABLE. REORDER OF MRI OF PELVIS. RADIOLOGY CALLED.
--- NOTE | 2019-11-14 16:30 | NUR ---
PT REQUESTING ICE CHIPS OR SOMETHING TO DRINK. PT INFORMED SHE IS STRICT NPO
--- NOTE | 2019-11-14 17:10 | NUR ---
PT TO MRI TO COMPLETE TESTS. REMAINS AT BEDSIDE.
--- NOTE | 2019-11-14 18:26 | NUR ---
DISCHARGE INSTRUCTIONS GIVEN TO PATIENT AND . PT VERBALZIES UNDERSTANDING OF ALL INSTRUCTIONS AND FOLLOW UP. PT AMBULATED OUT OF ED WITH .
[2019-11-14 18:37] VITALS: BP 117/67
== END 2019-11-14 18:39 | disposition home or self-care (01) ==
LOC: ED 12:35
DX: O20.0 Threatened abortion (principal); R10.32 Left lower quadrant pain; R10.31 Right lower quadrant pain; O21.9 Vomiting of pregnancy, unspecified; R19.7 Diarrhea, unspecified; Z3A.08 8 weeks gestation of pregnancy
CPT/HCPCS: 36415; 72195; 74181; 76801; 80048; 81001; 82040; 84702; 85025; 87086; 96374; 96375; 96376; 99285; J2270; J2405; Q0162

== ENCOUNTER 2019-11-25 18:59 | Emergency (ER) | payer MEDICAID ==
[~2019-11-25] VITALS: Ht 175.3 cm; Wt 87.0 kg
--- NOTE | 2019-11-25 19:40 | NUR ---
pt called back to room from lobby
--- NOTE | 2019-11-25 19:45 | NUR ---
refusing ct per tech.
--- NOTE | 2019-11-25 20:00 | NUR ---
DR. GUERRIER AT TO EVAL PT. AND DISCUSS POC.
--- NOTE | 2019-11-25 20:08 | NUR ---
Pt report from Pricila lentz. This rn to assume care of pt. Pt tb medicated nov.
[2019-11-25] MEDS ORDERED: ONDANSETRON 2MG/ML, 2ML ONE (20:10)
[2019-11-25] MEDS ORDERED: MORPHINE SULFATE 4 MG/ML, 1ML ONE ×2 (20:10→21:42)
[2019-11-25] MEDS: MORPHINE SULFATE 4 MG/ML, 1ML IVPush PRN ×2 (20:27→21:44)
[2019-11-25] MEDS ORDERED: ONDANSETRON 2MG/ML, 2ML IVPush ONE (20:30)
--- NOTE | 2019-11-25 20:33 | NUR ---
First contact w/ pt. Pt presents to ed c/o lower abd painxmultiple days as well as dizziness. States 1 episode of syncope today. -head trauma. Pt states 8 weeks , confirmed w/ an EPT. Is not seeing an obgyn yet. Denies any cp or sob. Denies any vb or d/c. Monitoring applied. Iv in place, Pt provided ua. Medicated per mar. Pt educated on risks of medication on prior to use and still would like meds. Awaiting results.
[2019-11-25 20:55] LABS: BASOPHILS % (AUTO) 0 % (0-1); EOSINOPHILS # (AUTO) 0.05 x10^3/uL (0-0.4); EOSINOPHILS % (AUTO) 1 % (1-7); LYMPHOCYTES # (AUTO) 0.97 x10^3/uL (1-3.4); LYMPHOCYTES % (AUTO) 12 % (22-44); MD NO; MEAN CORPUSCULAR HEMOGLOBIN 28.4 pg (27.0-34.8); MEAN CORPUSCULAR HGB CONC 32.6 g/dL (32.4-35.8); MEAN CORPUSCULAR VOLUME 87.2 fL (80-100); MEAN PLATELET VOLUME 10.2 fL (7.4-10.4); MONOCYTES # (AUTO) 0.44 x10^3/uL (0.2-0.8); MONOCYTES % (AUTO) 6 % (2-9); NEUTROPHILS # (AUTO) 6.32 x10^3/uL (1.8-6.8); NEUTROPHILS % (AUTO) 81 % (42-75); PLATELET COUNT 233 x10^3/uL (130-400); RED BLOOD COUNT 4.04 x10^6/uL (3.82-5.3); RED CELL DISTRIBUTION WIDTH 18.4 % (9.6-15.2)
[2019-11-25 20:59] LABS: CULTURE INDICATED? YES; MICROSCOPIC INDICATED
[2019-11-25 21:01] LABS: ALANINE AMINOTRANSFERASE 17 U/L (12-78); ALBUMIN 3.8 g/dL (3.4-5.0); ANION GAP 7 mmol/L (5-15); CHLORIDE 107 mmol/L (98-107); CREATININE 0.59 mg/dL (0.55-1.02)
[2019-11-25 21:18] LABS: ALKALINE PHOSPHATASE 46 U/L (45-117); BILIRUBIN,TOTAL 0.6 mg/dL (0.2-1.0); TOTAL PROTEIN 7.5 g/dL (6.4-8.2)
[2019-11-25 21:26] VITALS: BP 118/71
--- NOTE | 2019-11-25 21:26 | NUR ---
Tx to US at this time.
== END 2019-11-25 22:19 | disposition home or self-care (01) ==
LOC: ED 22:00
DX: O9A.211 Injury, poisoning and certain other consequences of external causes complicating pregnancy, first trimester (principal); R10.32 Left lower quadrant pain; R42 Dizziness and giddiness; Z3A.08 8 weeks gestation of pregnancy
CPT/HCPCS: 36415; 76801; 80053; 81001; 84702; 85025; 87086; 93005; 96374; 96375; 96376; 99285; J2270; J2405; 99284

== ENCOUNTER 2019-12-08 13:55 | Emergency (ER) | payer MEDICAID ==
[~2019-12-08] VITALS: Ht 175.3 cm; Wt 88.5 kg
--- NOTE | 2019-12-08 14:28 | NUR ---
US DELAY-PT TEARFUL IN LOBBY REQUESTING PAIN MEDS BEFORE SCAN, DUE TO INTENSE CRAMPING AND SAID SHE WILL NOT TOLERATE SCAN.
[2019-12-08 14:46] LABS: BASOPHILS # (AUTO) 0.01 x10^3/uL (0-0.1); BASOPHILS % (AUTO) 0 % (0-1); EOSINOPHILS # (AUTO) 0.02 x10^3/uL (0-0.4); EOSINOPHILS % (AUTO) 0 % (1-7); LYMPHOCYTES % (AUTO) 9 % (22-44); MD NO; MEAN CORPUSCULAR HEMOGLOBIN 28.9 pg (27.0-34.8); MEAN CORPUSCULAR HGB CONC 32.8 g/dL (32.4-35.8); MEAN CORPUSCULAR VOLUME 88.1 fL (80-100); MEAN PLATELET VOLUME 9.6 fL (7.4-10.4); MONOCYTES # (AUTO) 0.24 x10^3/uL (0.2-0.8); MONOCYTES % (AUTO) 3 % (2-9); NEUTROPHILS # (AUTO) 6.96 x10^3/uL (1.8-6.8); NEUTROPHILS % (AUTO) 88 % (42-75); PLATELET COUNT 214 x10^3/uL (130-400); RED BLOOD COUNT 3.75 x10^6/uL (3.82-5.3); RED CELL DISTRIBUTION WIDTH 17.6 % (9.6-15.2)
[2019-12-08 14:54] LABS: ALANINE AMINOTRANSFERASE 12 U/L (12-78); ALBUMIN 3.5 g/dL (3.4-5.0); ANION GAP 6 mmol/L (5-15); CHLORIDE 107 mmol/L (98-107); CREATININE 0.57 mg/dL (0.55-1.02)
[2019-12-08 15:11] LABS: ALKALINE PHOSPHATASE 39 U/L (45-117); BILIRUBIN,TOTAL 0.1 mg/dL (0.2-1.0); TOTAL PROTEIN 7.1 g/dL (6.4-8.2)
[2019-12-08] MEDS ORDERED: HYDROmorphone 2 MG/ML, 1ML ONE (15:16)
[2019-12-08] MEDS ORDERED: HYDROmorphone 2 MG/ML, 1ML IM PRN (15:30)
--- NOTE | 2019-12-08 15:36 | NUR ---
Pt to US in NAD, medicated per MAR prior to US
[2019-12-08 15:42] LABS: MICROSCOPIC NOT IND
[2019-12-08 15:45] LABS: CULTURE INDICATED? NO
[2019-12-08 16:41] VITALS: BP 139/67
== END 2019-12-08 16:42 | disposition home or self-care (01) ==
LOC: ED 15:15
DX: O9A.211 Injury, poisoning and certain other consequences of external causes complicating pregnancy, first trimester (principal); Z3A.09 9 weeks gestation of pregnancy; W01.0XXA Fall on same level from slipping, tripping and stumbling without subsequent striking against object, initial encounter; Y93.89 Activity, other specified; Y92.89 Other specified places as the place of occurrence of the external cause; Y99.8 Other external cause status
CPT/HCPCS: 36415; 76801; 80053; 81003; 84702; 85025; 96372; 99284; J1170

== ENCOUNTER 2019-12-22 12:12 | Emergency (ER) | payer MEDICAID ==
[~2019-12-22] VITALS: Ht 175.3 cm; Wt 89.5 kg
[2019-12-22 12:16] VITALS: BP 121/78
[2019-12-22] MEDS ORDERED: ONDANSETRON ODT 4 MG PO ONE (12:30)
[2019-12-22 13:03] LABS: BASOPHILS # (AUTO) 0.01 x10^3/uL (0-0.1); BASOPHILS % (AUTO) 0 % (0-1); EOSINOPHILS # (AUTO) 0.09 x10^3/uL (0-0.4); EOSINOPHILS % (AUTO) 1 % (1-7); LYMPHOCYTES % (AUTO) 8 % (22-44); MD NO; MEAN CORPUSCULAR HEMOGLOBIN 28.8 pg (27.0-34.8); MEAN CORPUSCULAR HGB CONC 32.6 g/dL (32.4-35.8); MEAN CORPUSCULAR VOLUME 88.3 fL (80-100); MEAN PLATELET VOLUME 9.8 fL (7.4-10.4); MONOCYTES # (AUTO) 0.18 x10^3/uL (0.2-0.8); MONOCYTES % (AUTO) 2 % (2-9); NEUTROPHILS # (AUTO) 7.06 x10^3/uL (1.8-6.8); NEUTROPHILS % (AUTO) 89 % (42-75); PLATELET COUNT 227 x10^3/uL (130-400); RED BLOOD COUNT 3.69 x10^6/uL (3.82-5.3); RED CELL DISTRIBUTION WIDTH 17.1 % (9.6-15.2)
[2019-12-22 13:13] LABS: ALANINE AMINOTRANSFERASE 10 U/L (12-78); ALBUMIN 3.4 g/dL (3.4-5.0); ANION GAP 6 mmol/L (5-15); CALCIUM 8.7 mg/dL (8.5-10.1); CHLORIDE 107 mmol/L (98-107); CREATININE 0.52 mg/dL (0.55-1.02)
[2019-12-22 13:30] LABS: ALKALINE PHOSPHATASE 39 U/L (45-117); BILIRUBIN,TOTAL 0.3 mg/dL (0.2-1.0)
--- NOTE | 2019-12-22 13:58 | NUR ---
ERP AT BEDSIDE, PT CRYING, ABLE TO FOLLOW COMMANDS, RESPIRATIONS EVEN AND UNLABORED.
[2019-12-22] MEDS ORDERED: SODIUM CHLORIDE 0.9% 1,000ML IVBOLUS ONE (14:00)
[2019-12-22] MEDS ORDERED: HYDROcodone/APAP 10/325 MG TABLET PO ONE (14:00)
--- NOTE | 2019-12-22 14:03 | NUR ---
REPORT FROM BEHZAD SMITH. PT CARE RESPONSIBILITIES ASSUMED.
[2019-12-22] MEDS ORDERED: HYDROcodone/APAP 10/325 MG TABLET ONE (14:11)
[2019-12-22] MEDS ORDERED: ONDANSETRON ODT 4 MG ONE (14:11)
[2019-12-22 14:51] LABS: MICROSCOPIC NOT IND
[2019-12-22 14:55] LABS: CULTURE INDICATED? NO
== END 2019-12-22 15:49 | disposition home or self-care (01) ==
LOC: ED 13:59
DX: O20.0 Threatened abortion (principal); R11.2 Nausea with vomiting, unspecified; E86.0 Dehydration; Z3A.12 12 weeks gestation of pregnancy
CPT/HCPCS: 36415; 76801; 80053; 81003; 84702; 85025; 99284; Q0162

== ENCOUNTER 2020-01-04 00:21 | Emergency (ER) | payer MEDICAID ==
[~2020-01-04] VITALS: Ht 175.3 cm; Wt 93.7 kg
--- NOTE | 2020-01-04 00:47 | NUR ---
pt up to rr, provided urine cup for sample
[2020-01-04] MEDS ORDERED: ONDANSETRON ODT 4 MG PO ONE (01:00)
[2020-01-04] MEDS ORDERED: DIPHENHYDRAMINE 25 MG CAPSULE PO ONE (01:00)
--- NOTE | 2020-01-04 01:02 | NUR ---
URINE SAMPLE TAKEN TO LAB
[2020-01-04] MEDS ORDERED: ONDANSETRON ODT 4 MG ONE (01:11)
[2020-01-04] MEDS ORDERED: DIPHENHYDRAMINE 25 MG CAPSULE ONE (01:12)
[2020-01-04 01:13] LABS: BASOPHILS # (AUTO) 0.01 x10^3/uL (0-0.1); BASOPHILS % (AUTO) 0 % (0-1); EOSINOPHILS # (AUTO) 0.04 x10^3/uL (0-0.4); EOSINOPHILS % (AUTO) 1 % (1-7); LYMPHOCYTES # (AUTO) 1.33 x10^3/uL (1-3.4); LYMPHOCYTES % (AUTO) 16 % (22-44); MD NO; MEAN CORPUSCULAR HGB CONC 32.2 g/dL (32.4-35.8); MONOCYTES # (AUTO) 0.37 x10^3/uL (0.2-0.8); MONOCYTES % (AUTO) 4 % (2-9); NEUTROPHILS # (AUTO) 6.52 x10^3/uL (1.8-6.8); NEUTROPHILS % (AUTO) 79 % (42-75); PLATELET COUNT 217 x10^3/uL (130-400); RED BLOOD COUNT 3.37 x10^6/uL (3.82-5.3); RED CELL DISTRIBUTION WIDTH 16.5 % (9.6-15.2)
--- NOTE | 2020-01-04 01:20 | NUR ---
PT MEDICATED PER MAR
[2020-01-04 01:21] LABS: ALANINE AMINOTRANSFERASE 11 U/L (12-78); ANION GAP 4 mmol/L (5-15); CALCIUM 8.8 mg/dL (8.5-10.1); CHLORIDE 107 mmol/L (98-107); CREATININE 0.62 mg/dL (0.55-1.02)
[2020-01-04 01:22] LABS: MICROSCOPIC NOT IND
[2020-01-04 01:24] LABS: ALKALINE PHOSPHATASE 37 U/L (45-117); BILIRUBIN,TOTAL 0.1 mg/dL (0.2-1.0); TOTAL PROTEIN 6.6 g/dL (6.4-8.2)
[2020-01-04 01:25] LABS: CULTURE INDICATED? NO
[2020-01-04 01:27] LABS: AMPHETAMINE SCREEN, URINE Negative (Negative); BARBITURATE SCREEN, URINE Negative (Negative); BENZODIAZEPINE SCREEN, URINE Negative (Negative); CANNABINOID SCREEN, URINE Positive (Negative); COCAINE SCREEN, URINE Negative (Negative); METHADONE SCREEN, URINE Negative (Negative); OPIATE SCREEN, URINE Negative (Negative)
[2020-01-04 01:35] VITALS: BP 103/66
[2020-01-04] MEDS ORDERED: ACETAMINOPHEN 500 MG TABLET ONE (01:49)
--- NOTE | 2020-01-04 01:50 | NUR ---
PA UPDATED THAT PT C/O CONTINUED ABD PAIN, REQUESTING PAIN MEDICATION. PA WILL PLACE MEDICATION ORDER
[2020-01-04] MEDS ORDERED: HYDROcodone/APAP 5/325 TABLET ONE (01:55)
--- NOTE | 2020-01-04 01:57 | NUR ---
PT MEDICATED PER MAR
[2020-01-04] MEDS ORDERED: ACETAMINOPHEN 500 MG TABLET PO ONE (02:00)
[2020-01-04] MEDS ORDERED: HYDROcodone/APAP 5/325 TABLET PO ONE (02:00)
== END 2020-01-04 02:12 | disposition home or self-care (01) ==
LOC: ED 00:54
DX: O26.892 Other specified pregnancy related conditions, second trimester (principal); K29.00 Acute gastritis without bleeding; Z3A.14 14 weeks gestation of pregnancy
CPT/HCPCS: 36415; 80053; 80307; 81003; 83690; 85025; 99284; Q0162; Q0163

== ENCOUNTER 2020-07-15 15:53 | Emergency (ER) | payer MEDICAID ==
[~2020-07-15] VITALS: Ht 175.3 cm; Wt 84.0 kg
[2020-07-15 17:23] VITALS: BP 113/53
--- NOTE | 2020-07-15 19:25 | NUR ---
called in the lobby, no answer
--- NOTE | 2020-07-15 19:35 | NUR ---
2nd call. no answer
--- NOTE | 2020-07-15 19:45 | NUR ---
call in lobby. no answer.
--- NOTE | 2020-07-15 19:45 | NUR ---
Michelle ruffin in ED - 07/15/20 at 1946 by ADAMS 3rd call. marlene iglesias.
== END 2020-07-15 19:50 | disposition left against medical advice (07) ==
LOC: ED 16:23
DX: R10.84 Generalized abdominal pain (principal); R11.2 Nausea with vomiting, unspecified
CPT/HCPCS: 99281